=== PATIENT | male | born 1980 | race African-American/Black ===

== ENCOUNTER 2024-12-24 13:57 | Outpatient (OUT) | payer OTHER, SELFPAY ==
--- NOTE | 2024-12-24 13:59 | CA_ITS ---
Patient Name: QUIN MENDOZA MR#: [id number] : 1980 Exam Date: 12/24/2024 Ordering Doctor: DR GONZALO JUNIOR M.D. ECHOCARDIOGRAM REPORT PROCEDURE: CA ECHO DOPPLER COMPLETE INDICATIONS: Chest pain COMPARISON: None. DESCRIPTION: COMPLETE ECHOCARDIOGRAM Real-time transthoracic echocardiography with 2D, M-mode, spectral and color flow Doppler performed. QUALITY: Technical quality was good. LEFT VENTRICLE: Normal chamber size. Mild concentric left ventricular hypertrophy. Global left ventricular systolic function is normal. LV EF: Estimated left ventricular ejection fraction is 60-65%. DIASTOLIC: Normal diastolic function. ATRIAL SEPTUM: LEFT ATRIUM: Normal chamber size. RIGHT ATRIUM: Normal chamber size. RIGHT VENTRICLE: Normal chamber size. Normal right ventricular systolic function. TRICUSPID VALVE: Normal mobility and thickness. No stenosis with trivial regurgitation. No evidence of pulmonary hypertension. RVSP 20 mmHg MITRAL VALVE: Normal mobility and thickness. No evidence of mitral valve stenosis. There is no mitral annular calcification. Trivial mitral regurgitation. AORTIC VALVE: Normal trileaflet appearance. No visible sclerosis. Normal leaflet mobility. No evidence of aortic valve stenosis. Trivial aortic regurgitation. AORTIC ROOT: Normal diameter and appearance. PULMONIC VALVE: Normal thickness and mobility. No stenosis. Mild regurgitation. PERICARDIUM: No evidence of pericardial effusion. IVC: Collapses with inspirations. Normal size. PLEURA: CONCLUSION: 1. Normal ventricular size and systolic function. LVEF is 60-65%. 2. Normal diastolic function. 3. No significant valvular dysfunction. 4. Normal right sided pressures. Adult Echocardiography Procedure Report Left Ventricle LVEDD (3.7 - 5.6 cm): 3.87 cm LVESD (2.2 - 4.0 cm): 2.96 cm LVIVS thickness (0.6 - 1.2 cm): 1.23 cm LVPW thickness (0.5 - 1.0 cm): 0.92 cm e': 0.10 m/s E - e': 6.64 LVOT Max Gradient: 3.40 mm[Hg] LVOT Area (cm2): 0.92 m/s Peak Velocity (LVOT): 0.92 m/s Mean Velocity (LVOT): 0.65 m/s LVOT Diameter 1.90 cm Left Ventricular Ejection Fraction: 63.25 % Left Atrium LA Volume Index (2D A2C): 19.65 ml/m2 Left Atrium Systolic Dimension: 3.49 cm Mitral Valve MV E to A Ratio: 0.91, 1.03 Mitral Valve A-Wave Peak Velocity: 0.72 m/s Mitral Valve E-Wave Peak Velocity: 0.70 m/s Right Ventricle RV Internal Diastolic Dimension: 3.67 cm Aorta AO Root Diam: 2.88 cm Ascending Ao Diam: 2.92 cm Aortic Valve AoV Area (Peak David): 1.68 cm2, 1.68 cm2 AoV Area (VTI): 1.59 cm2, 1.57 cm2 Peak Velocity(Antegrade Flow): 1.56 m/s, 1.56 m/s Peak Gradient(Antegrade Flow): 9.74 mm[Hg], 9.74 mm[Hg] Mean Velocity(Antegrade Flow): 1.05 m/s, 1.05 m/s Mean Gradient(Antegrade Flow): 5.08 mm[Hg], 5.06 mm[Hg] Velocity Time Integral: 30.05 cm, 29.33 cm Tricuspid Valve Peak Velocity (Regurgitant Flow): 2.11 m/s Pulmonic Valve Mean Gradient: 3.08 mm[Hg], 3.36 mm[Hg], 3.09 mm[Hg] Mean Velocity: 0.86 m/s, 0.90 m/s, 0.87 m/s Peak Velocity: 1.04 m/s Peak Gradient: 4.22 mm[Hg], 4.76 mm[Hg], 3.99 mm[Hg] Right Atrium Right Atrium Systolic Pressure: 45.53 ml, 45.53 ml Dictated by: Zachary Mortensen M.D. on 12/24/2024 at 17:48 Approved by: Zachary Mortensen M.D. on 12/24/2024 at 17:53
== END 2024-12-24 13:58 | disposition home or self-care (01) ==
LOC: CARD 13:58
PROVIDERS: Visit Provider Internal Medicine Interventional Cardiology
DX: I25.10 Atherosclerotic heart disease of native coronary artery without angina pectoris (principal)
CPT/HCPCS: 93306